=== PATIENT | male | born 1975 | race Caucasian/White ===

== ENCOUNTER 2017-12-10 00:28 | Inpatient (IN) | payer MEDICAID ==
[~2017-12-10] VITALS: Ht 175.3 cm; Wt 122.5 kg
[2017-12-10 00:32] VITALS: Ht 175.3 cm; Wt 122.5 kg
[2017-12-10 01:20] LABS: microscopic required? NO
[2017-12-10 01:33] LABS: UA SPECIFIC GRAVITY 1.025 (1.005-1.035); urine erythrocyte NEGATIVE (NEGATIVE)
[2017-12-10 01:42] LABS: BASOPHIL % 0.6 % (0-2); PLATELET COUNT 332 x10^3mcL (130-400)
[2017-12-10 01:43] LABS: CALCIUM 8.7 mg/dL (8.5-10.1); CARBON DIOXIDE 29.7 mmol/L (21-32); CHLORIDE SERUM 102 mmol/L (98-107); CREATININE SERUM 1.2 mg/dL (0.7-1.3); GFR1 > 60 mL/min; GLUCOSE SERUM 80 mg/dL (74-106); SODIUM SERUM 140 mmol/L (136-145)
[2017-12-10 01:47] LABS: ALBUMIN 3.7 g/dL (3.4-5.0); ALKALINE PHOSPHATASE 98 U/L (46-116); ALT/SGPT 37 U/L (16-63); AST/SGOT 17 U/L (15-37); BILIRUBIN TOTAL 0.41 mg/dL (0.20-1.00); TOTAL PROTEIN, SERUM 7.4 g/dL (6.4-8.2)
[2017-12-10 05:57] LABS: AMYLASE 55 U/L (25-115); LIPASE 207 IU/L (73-393); MAGNESIUM 2.2 mg/dL (1.8-2.4)
[2017-12-10 05:59] LABS: CHOLESTEROL 220 mg/dL (<200); CHOLESTEROL/HDL RATIO 7.9; HDL CHOLESTEROL 28 mg/dL (40-60); TRIGLYCERIDES 623 mg/dL (<150)
[2017-12-10 06:00] VITALS: BP 136/81
[2017-12-10 06:06] LABS: T3 TOTAL 1.06 ng/mL
[2017-12-10 06:08] LABS: FREE T4 1.08 ng/dL (0.76-1.46); FREE THYROXINE INDEX 3.4 ug/dL (1.4-4.5); T4(THYROXINE) 9.7 ug/dL (4.7-13.3)
[2017-12-10 09:04] VITALS: BP 115/62
[2017-12-10 14:12] LABS: AMPHETAMINE QUAL UR NONE DETECTED (See below)
[2017-12-10 17:19] VITALS: BP 132/79
[2017-12-10 20:25] VITALS: BP 134/79
[2017-12-11 05:34] LABS: BASOPHIL % 0.3 % (0-2); PLATELET COUNT 260 x10^3mcL (130-400); RED CELL DISTRIBUTION WIDTH 12.9 % (11.5-14.5)
[2017-12-11 05:44] VITALS: BP 117/61
[2017-12-11 05:46] LABS: CALCIUM 8.4 mg/dL (8.5-10.1); CARBON DIOXIDE 25.8 mmol/L (21-32); CHLORIDE SERUM 104 mmol/L (98-107); CREATININE SERUM 0.9 mg/dL (0.7-1.3); GFR1 > 60 mL/min; GLUCOSE SERUM 92 mg/dL (74-106); POTASSIUM SERUM 3.9 mmol/L (3.5-5.1); SODIUM SERUM 140 mmol/L (136-145)
[2017-12-11 05:59] LABS: MAGNESIUM 2.1 mg/dL (1.8-2.4); PHOSPHOROUS 3.7 mg/dL (2.5-4.9)
[2017-12-11 10:01] VITALS: BP 120/71
[2017-12-11 10:31] VITALS: BP 120/71
== END 2017-12-11 11:40 | disposition home or self-care (01) ==
LOC: ED 00:28 → MU 04:26
PROVIDERS: Emergency Medicine; Internal Medicine
DX: K81.1 Chronic cholecystitis (principal); E78.5 Hyperlipidemia, unspecified; E86.0 Dehydration; R73.03 Prediabetes; F12.10 Cannabis abuse, uncomplicated; Z68.39 Body mass index [BMI] 39.0-39.9, adult; F17.210 Nicotine dependence, cigarettes, uncomplicated
CPT/HCPCS: 78226; 84439; A9537; J7030; Q0092

== ENCOUNTER 2018-08-08 09:50 | Emergency (ER) | payer SELFPAY ==
[~2018-08-08] VITALS: Ht 175.3 cm; Wt 121.6 kg
[2018-08-08 09:56] VITALS: Ht 175.3 cm; Wt 121.6 kg
[2018-08-08 10:32] LABS: microscopic required? NO
[2018-08-08 10:54] LABS: CALCIUM 8.2 mg/dL (8.5-10.1); CARBON DIOXIDE 26.9 mmol/L (21-32); CHLORIDE SERUM 102 mmol/L (98-107); CREATININE SERUM 0.9 mg/dL (0.7-1.3); GFR1 > 60 mL/min; GLUCOSE SERUM 104 mg/dL (74-106); POTASSIUM SERUM 4.4 mmol/L (3.5-5.1); SODIUM SERUM 136 mmol/L (136-145)
[2018-08-08 10:58] LABS: ALKALINE PHOSPHATASE 91 U/L (46-116); ALT/SGPT 34 U/L (16-63); AST/SGOT 13 U/L (15-37); BILIRUBIN TOTAL 0.2 mg/dL (0.20-1.00); HDL CHOLESTEROL 43 mg/dL (40-60); LIPASE 125 IU/L (73-393); TOTAL PROTEIN, SERUM 7.1 g/dL (6.4-8.2)
[2018-08-08 10:59] LABS: ALBUMIN 3.3 g/dL (3.4-5.0); CHOLESTEROL 210 mg/dL (<200)
[2018-08-08 11:04] LABS: BASOPHIL % 0.3 % (0-2); PLATELET COUNT 258 x10^3mcL (130-400); RED CELL DISTRIBUTION WIDTH 13.7 % (11.5-14.5)
[2018-08-08 12:59] LABS: UA SPECIFIC GRAVITY <1.005 (1.005-1.035)
[2018-08-08 13:00] LABS: urine erythrocyte NEGATIVE (NEGATIVE)
[2018-08-08 13:50] VITALS: BP 131/74
== END 2018-08-08 13:48 | disposition home or self-care (01) ==
LOC: ED 09:50
PROVIDERS: Emergency Medicine
DX: R10.11 Right upper quadrant pain (principal); R11.0 Nausea; K80.20 Calculus of gallbladder without cholecystitis without obstruction; E66.9 Obesity, unspecified; Z68.39 Body mass index [BMI] 39.0-39.9, adult
CPT/HCPCS: J1885; J7030; Q0092